=== PATIENT | male | born 2000 | race Caucasian/White ===

== ENCOUNTER 2019-04-27 20:24 | Emergency (ER) | payer OTHER ==
[2019-04-27 20:36] VITALS: BP 120/66
--- NOTE | 2019-04-27 20:40 | UC ---
Throat Pain/Nasal Gary HPI - HPI Summary HPI Summary: 18yo male presenting with sore throat x2 days. Patient states yesterday he also noticed "white patch on right tonsil." Denies other URI symptoms. Denies cough. Denies fever and chills. Denies n/v. Denies decreased appetite or fluid intake. Denies taking anything for symptom relief. - History of Current Complaint Stated Complaint: SORE THROAT Hx Obtained From: Patient Pain Intensity: 3 Pain Scale Used: 0-10 Numeric - Allergies/Home Medications Allergies/Adverse Reactions: Allergies Allergy/AdvReac Type Severity Reaction Status Date / Time No Known Allergies Allergy Verified 04/27/19 20:36 Home Medications: Home Medications ISOtretinoin [Isotretinoin] 80 mg PO DAILY 04/27/19 [History Confirmed 04/27/19] PMH/Surg Hx/FS Hx/Imm Hx Previously Healthy: Yes - Surgical History Surgical History: Yes Surgery Procedure, Year, and Place: wisdom teeth 2017 - Family History Known Family History: Positive: Non-Contributory - Social History Alcohol Use: None Substance Use Type: None Smoking Status (MU): Never Smoked Tobacco Review of Systems All Other Systems Reviewed And Are Negative: Yes Constitutional: Positive: Negative. Negative: Fever, Chills Skin: Positive: Negative ENT: Positive: Sore Throat Respiratory: Positive: Negative Cardiovascular: Positive: Negative Gastrointestinal: Positive: Negative Musculoskeletal: Negative: Myalgia Neurological: Negative: Headache Physical Exam Triage Information Reviewed: Yes Appearance: Well-Appearing, No Pain Distress, Well-Nourished Vital Signs: Initial Vital Signs Temp 99.1 F 04/27/19 20:31 Pulse 86 04/27/19 20:31 Resp 17 04/27/19 20:31 BP 120/66 04/27/19 20:31 Pulse Ox 97 04/27/19 20:31 Vital Signs Reviewed: Yes Eyes: Positive: Conjunctiva Clear ENT: Positive: Hearing grossly normal, Pharyngeal erythema, TMs normal, Uvula midline. Negative: Nasal congestion, Tonsillar swelling, Tonsillar exudate Neck exam: Normal Neck: Positive: Supple, Nontender, No Lymphadenopathy Respiratory Exam: Normal Respiratory: Positive: Lungs clear, Normal breath sounds, No respiratory distress Cardiovascular Exam: Normal Cardiovascular: Positive: RRR, No Murmur Neurological: Positive: Alert Psychological: Positive: Age Appropriate Behavior Skin Exam: Normal Skin: Negative: Rashes Throat Pain/Nasal Course/Dx - Course Course Of Treatment: Negative rapid strep. Discussed viral vs bacterial illness and instructed to continue with symptomatic treatment. Instructed to follow up with [facility] if symptoms persist. Patient voiced understanding and agreed with plan. - Differential Dx/Diagnosis Differential Diagnosis/HQI/PQRI: Pharyngitis, URI, Other - strep pharyngitis Provider Diagnosis: Pharyngitis Discharge ED - Sign-Out/Discharge Documenting (check all that apply): Patient Departure All imaging exams completed and their final reports reviewed: No Studies - Discharge Plan Condition: Stable Disposition: HOME Patient Education Materials: Pharyngitis (ED) Referrals: [facility] [Outside] - If Needed Additional Instructions: Your rapid strep test was negative today. Your symptoms are likely caused by a virus and should resolve without treatment. You may use over the counter throat sprays, lozenges, tea with honey, and over the counter pain medications for symptomatic relief. Get plenty of rest and fluids. Follow up with your primary care provider or the [facility] clinic listed below if symptoms do not resolve within 7 days. - Billing Disposition and Condition Condition: STABLE Disposition: Home - Attestation Statements Provider Attestation: I was available for consult. This patient was seen by the DEYANIRA. The patient was not presented to, seen by, or examined by me. -Tiburcio
== END 2019-04-27 21:04 | disposition home or self-care (01) ==
LOC: UCEAST 20:24
DX: J02.9 Acute pharyngitis, unspecified (principal)
CPT/HCPCS: 87651; 99211; G0463